=== PATIENT | female | born 1955 ===

== ENCOUNTER 2017-01-30 08:01 | Day surgery (SDC) | payer MEDICAID ==
[2014-09-25 09:06] VITALS: BMI 34.9
[2017-01-30] MEDS ORDERED: Lidocaine 1%/Epinephrine 1:100000 30 ml vial IJ ONE (08:18)
[2017-01-30] MEDS ORDERED: Acetaminophen-Codeine 300/30 mg Tab PO PRN (10:16)
[2017-01-30] MEDS ORDERED: Oxymetazoline 0.05% Nasal Spray (30 ml) NS ONE (10:25)
[2017-01-30] MEDS ORDERED: ceFAZolin 1 gm FROZEN Premix 1 GM/50 ML ML IVPB ONE (10:26)
[2017-01-30] MEDS ORDERED: Propofol 10 mg/ml Inj (20 ML) ONE (10:29)
[2017-01-30] MEDS ORDERED: Dextrose 5%/0.45% NS 1,000 ML IV SCH (10:30)
[2017-01-30] MEDS ORDERED: Succinylcholine Chloride 20 mg/ml Syr (5 ml) IV ONE (10:31)
[2017-01-30] MEDS: HYDROmorphone 0.5 mg/0.5 ml ISec IVP PRN ×2 (11:18→11:33)
[2017-01-30 11:32] VITALS: O2SAT 100
[2017-01-30] MEDS ORDERED: Benzocaine/Menthol (Cepacol) Lozenge MT PRN (11:46)
[2017-01-30] MEDS ORDERED: HYDROmorphone 0.5 mg/0.5 ml ISec IVP PRN (11:51)
[2017-01-30] MEDS ORDERED: Albuterol 0.083% Inhal Sol (2.5 mg/3 mL) UD INH ONE (11:57)
[2017-01-30] MEDS ORDERED: HYDROmorphone 0.5 mg/0.5 ml ISec ONE (11:58)
[2017-01-30] MEDS ORDERED: Racepinephrine 2.25% Inhal Soln 0.5 ML UD INH ONE (11:58)
[2017-01-30] MEDS ORDERED: Albuterol 0.083% Inhal Sol (2.5 mg/3 mL) UD ONE (12:02)
--- NOTE | 2017-01-30 12:06 | RAD ---
HISTORY: cough COMPARISON: 01/08/2017. FINDINGS: LUNGS: The lungs are clear. PLEURA: No significant pleural effusion identified, no pneumothorax apparent. CARDIOVASCULAR: Normal. OSSEOUS STRUCTURES: No significant abnormalities. VISUALIZED UPPER ABDOMEN: Normal. OTHER FINDINGS: None. IMPRESSION: No active pulmonary disease.
[2017-01-30 14:32] VITALS: BP 120/70; PULSE 70; RESP 18; TEMP 97
--- NOTE | 2017-01-30 18:36 | OP ---
PROCEDURE DATE: 01/30/2017 PREOPERATIVE DIAGNOSIS: Left nasal lesion. POSTOPERATIVE DIAGNOSIS: Left nasal lesion. PROCEDURE: Endoscopic removal of the nasal lesion. SURGEON: Mj Gonzalez MD SIGNIFICANT FINDINGS: Lesion noted in the left anterior septum. DESCRIPTION OF PROCEDURE: The patient was brought into the room, placed in a supine position and anesthesia was initiated through an ET tube. Afrin-soaked pledgets were inserted into nasal cavity. They remained there for 5 minutes and removed. The left septum was injected with lidocaine with epinephrine. A 0-degree scope was used to view the lesion and the incision was made around the lesion using blade. Dissections were made to the perichondrium. A mucoperichondrial flap was raised medial to the lesion and the lesion was removed. Bleeding was controlled using suction cautery. The scope was removed. The patient was taken off anesthesia and taken to recovery room in stable manner. Mj Gonzalez MD MTDD
== END 2017-01-30 14:33 | disposition home or self-care (01) ==
LOC: C.SDS 08:01
PROVIDERS: ATTEND Otolaryngology
DX: J34.89 Other specified disorders of nose and nasal sinuses (principal)
CPT/HCPCS: 30115; 71010; 82948; 88305; 94640; J0690; J1100; J1170; J2001; J2704; J3010; J7030

== ENCOUNTER 2017-04-09 10:43 | Emergency (ER) | payer MEDICAID ==
[2017-04-09 11:04] VITALS: BMI 32.9
[2017-04-09 11:09] VITALS: RESP 20
--- NOTE | 2017-04-09 11:56 | C.PDOC ---
History Of Present Illness 61 year old female presents to the ED for evaluation of headache, generalized body aches, nonproductive cough, congestion and subjective fever which began 5 days ago. Patient was seen by her PMD yesterday and was prescribed antibiotics and cough medicine (names unknown). Patient was sent for CXR, which was done this morning. Patient now presents to the ED because she wants to know the results of her XRay. She has no complaints at this time. PMD: Dr. Felix Jesus Time Seen by Provider: 04/09/17 11:19 Chief Complaint (Nursing): Flu-like Symptoms History Per: Patient History/Exam Limitations: no limitations Onset/Duration Of Symptoms: Hrs Current Symptoms Are (Timing): Still Present Location Of Pain: Diffuse Myalgias Sick Contacts (Context): None Associated Symptoms: Fever, Cough, Nasal Congestion. denies: Sputum Ear Symptoms: Bilateral: None Additional History Per: Patient Past Medical History Reviewed: Historical Data, Nursing Documentation, Vital Signs Vital Signs: Last Vital Signs Temp 98.9 F 04/09/17 12:24 Pulse 91 H 04/09/17 12:24 Resp 20 04/09/17 12:24 BP 133/86 04/09/17 12:24 Pulse Ox 97 04/09/17 14:15 - Medical History PMH: Anxiety, Arthritis, Asthma, Colonic Polyps, Depression, Gastritis, HTN, Hypercholesterolemia, Hypothyroidism, Rheumatoid Arthritis Surgical History: Appendectomy, Endoscopy, Tonsillectomy - [facility] Procedures ESOPHAGOGASTRODUODENOSCOPY [EGD] W/CLOSED BIOPSY (09/25/14) Family History: States: Unknown Family Hx - Social History Hx Alcohol Use: No Hx Substance Use: No - Immunization History Hx Tetanus Toxoid Vaccination: No Hx Influenza Vaccination: No Hx Pneumococcal Vaccination: No Review Of Systems Constitutional: Positive for: Fever, Malaise Eyes: Negative for: Redness ENT: Positive for: Nose Congestion Cardiovascular: Negative for: Chest Pain, Palpitations Respiratory: Positive for: Cough. Negative for: Sputum, Wheezing Gastrointestinal: Negative for: Vomiting, Abdominal Pain, Diarrhea Genitourinary: Negative for: Dysuria Musculoskeletal: Positive for: Other (generalized body aches ) Physical Exam - Physical Exam Appears: Non-toxic, No Acute Distress, Other (actively coughing ) Skin: Normal Color, Warm, Dry Head: Atraumatic, Normacephalic Eye(s): bilateral: Normal Inspection, EOMI Ear(s): Bilateral: Normal (no erythema) Nose: Normal, No Discharge Oral Mucosa: Moist Throat: Normal, No Erythema, No Exudate Neck: Supple Chest: Symmetrical, No Deformity, No Tenderness Cardiovascular: Rhythm Regular, No Murmur Respiratory: Normal Breath Sounds, No Rales, No Rhonchi, No Wheezing Gastrointestinal/Abdominal: Soft, No Tenderness Extremity: Normal ROM, No Tenderness, Capillary Refill (less than 2 seconds ), No Deformity, No Swelling Neurological/Psych: Oriented x3, Normal Speech Gait: Steady ED Course And Treatment O2 Sat by Pulse Oximetry: 97 (on RA) Pulse Ox Interpretation: Normal Medical Decision Making Medical Decision Making: CXR from outpatient reviewed. Report IMPRESSION: No focal consolidation, significant pleural effusion, or definite pneumothorax identified. Patient was provided with copy of CXR report. Patient is resting comfortably, showing no signs of distress and is stable for discharge. Patient is advised to continue taking antibiotics and cough medicine as prescribed by her PMD. Advised to return to ED if symptoms persist or worsen. Disposition Counseled Patient/Family Regarding: Diagnosis, Need For Followup, Rx Given - Disposition Referrals: Felix Jesus MD [Staff Provider] - Disposition: HOME/ ROUTINE Disposition Time: 11:53 Condition: GOOD Additional Instructions: Your chest xray does not show pneumonia. Take antibiotic given by your doctor. Take cough medicine as needed. Use inhaler as needed. Take Tylenol or Motrin alternating every 4-6 hours for Fever 100.4F or higher. Rest and drink plenty of fluids. May use cool mist humidifier or vaporizer in room. Prescriptions: Albuterol HFA [Ventolin HFA 90 mcg/actuation (8 g)] 1 puff IH Q4 #1 puff Instructions: Upper Respiratory Infection (ED) Forms: [facility] [employer] (Lao) Print Language: GREEK - POA Present On Arrival: None - Clinical Impression Clinical Impression: Upper respiratory infection - PA / DIRECTOR OF SOFTWARE DEVELOPMENT / Resident Statement MD/DO has reviewed & agrees with the documentation as recorded. - Scribe Statement The provider has reviewed the documentation as recorded by the Scribe (Sybil Jeronimo) All medical record entries made by the Scribe were at my direction and personally dictated by me. I have reviewed the chart and agree that the record accurately reflects my personal performance of the history, physical exam, medical decision making, and the department course for this patient. I have also personally directed, reviewed, and agree with the discharge instructions and disposition.
[2017-04-09 12:32] VITALS: BP 133/86; PULSE 91; TEMP 98.9
[2017-04-09 14:11] VITALS: O2SAT 97
== END 2017-04-09 12:31 | disposition home or self-care (01) ==
LOC: C.ER 10:43
DX: J06.9 Acute upper respiratory infection, unspecified (principal); Z87.891 Personal history of nicotine dependence